=== PATIENT | female | born 1965 | race Caucasian/White ===

== ENCOUNTER 2016-12-23 19:01 | Emergency (ER) | payer OTHER ==
--- NOTE | 2016-12-23 19:21 | EDPHY ---
H & P Time Seen by Provider: 12/23/16 19:17 HPI/ROS: CHIEF COMPLAINT: Tender, red area on leg HISTORY OF PRESENT ILLNESS: 51-year-old female presents with concerns regarding a well-defined area of redness and tenderness on the medial aspect of her left calf. Area developed approximately a week ago. Has been getting slightly larger. Area is tender. Patient thought it was a varicose vein but also had concerns regarding a deep venous caught. She has no history of DVTs or PEs. Nonsmoker. No recent travel other than a trip to [place] via plane. No immobilization. No family history of DVTs or PEs. No cancer history. No fever, chills, chest pain, shortness of breath, palpitations, vomiting, diarrhea, urinary complaints, headache, lightheadedness. REVIEW OF SYSTEMS: Aside from elements discussed in the HPI, a comprehensive 10-point review of systems was reviewed and is negative. PAST MEDICAL HISTORY: Patient denies except knee surgeries. SOCIAL HISTORY: Nonsmoker. GENERAL APPEARANCE: Pleasant, well-developed, well-nourished, no acute distress. FOCUSED EXAM OF lower extremities: No swelling noted to the left lower extremity. On the medial aspect of the left calf there is a 5 x 2 cm area of erythema, palpable superficial clot, and slight warmth. This area is slightly tender. Calf itself is soft and nontender. Negative Homans sign. No fullness in the popliteal fossa. Brisk capillary refill distally. Dorsalis pedis and posterior tibial pulses are intact. Smoking Status: Never smoked Constitutional: Initial Vital Signs Temperature (C) 36.7 C 12/23/16 19:10 Heart Rate 72 12/23/16 19:10 Respiratory Rate 16 12/23/16 19:10 Blood Pressure 122/75 H 12/23/16 19:10 O2 Sat (%) 96 12/23/16 19:10 O2 Delivery Mode Room Air Allergies/Adverse Reactions: No Known Allergies Allergy (Unverified 12/23/16 19:11) Home Medications: Medication Instructions Recorded CALCIUM 12/23/16 Vitamin D3 12/23/16 Medical Decision Making ED Course/Re-evaluation: Patient's history and physical examination is consistent superficial thrombophlebitis. I discussed my impression with the patient. We discussed signs and symptoms of deep venous thrombus. We discussed careful observation for the development of generalized calf swelling, popliteal swelling, and increased pain. We discussed the treatment a superficial thrombophlebitis. Patient is comfortable being discharged without a ultrasound. She will follow up with her primary care physician if she has any concerns. She understands she may also return to emergency department at any point. Differential Diagnosis: Differential diagnosis for the patient's primary complaint of leg swelling was considered including but not limited to cellulitis, hypoalbuminemia, congestive heart failure, varicose veins, superficial thrombophlebitis,, chronic venous stasis and DVT. Departure - Departure Disposition: Home, Routine, Self-Care Clinical Impression: Superficial thrombophlebitis Qualifiers: Superficial thrombophlebitis-Involved body area: lower extremity Laterality: left Qualified Code(s): I80.02 - Phlebitis and thrombophlebitis of superficial vessels of left lower extremity Condition: Good Instructions: Superficial Thrombophlebitis (ED) Additional Instructions: 1. Please apply warm compress for 10-15 minutes 3 to 4 times a day. 2. Use ibuprofen 400-600 mg every 6-8 hours for pain. 3. Take 1 baby aspirin daily for the next week. (81mg) 4. Keep the leg elevated as much as possible in the evenings. Consider wearing compression hose during the day until your symptoms have resolved. 5. If you develop worsening redness, increased swelling of the calf, increased pain behind the knee, or other concerns, please follow up with your primary care physician or return to the emergency department. Referrals: Shefali Petty MD [Primary Care Provider] - As per Instructions
[2016-12-23 19:22] VITALS: BP 122/75; PULSE 72; RESP 16; TEMP 98.1; O2SAT 96
== END 2016-12-23 19:30 | disposition home or self-care (01) ==
LOC: CED 19:01
DX: I80.02 Phlebitis and thrombophlebitis of superficial vessels of left lower extremity (principal)